=== PATIENT | male | born 1995 | race Caucasian/White ===

== ENCOUNTER → 2017-09-09 | Outpatient (CLI) | payer OTHER ==
[~2017-09-09] MED LIST: CETI10CA PO; GADAVIST IV PRN
--- NOTE | 2017-09-09 21:06 | DIAGNOSTIC IMAGING REPORT ---
MRI OF THE BRAIN WITHOUT AND WITH IV CONTRAST CLINICAL HISTORY: Abnormalities of the gait and mobility. Fatigue. Dizziness. COMPARISON STUDY: Head CT July 19, 2016. TECHNIQUE: Utilizing a 1.5 Farhana magnet and dedicated coil, multiplanar, multiecho imaging of the brain was performed pre and postcontrast administration. IV administration of 10.5 mL of Gadavist contrast was uneventful. FINDINGS: There are no foci of restricted diffusion. No acute intracranial hemorrhage, midline shift or mass effect is present. Brain volume is normal. Ventricular system is normal. Basilar cisterns are patent. There are no extra-axial collections. Flow-voids for the major intracranial vessels are present. There is no intracranial mass or pathologic enhancement. No areas of signal abnormality are present. Orbits are unremarkable. Mastoid air cells are clear. Calvarial signal is normal. There is no evidence for a Chiari I malformation. IMPRESSION: Normal MRI of the brain. Electronically signed by: Myke Guillaume M.D. 09/09/2017 9:04 PM Dictated Date/Time: 09/09/2017 9:00 PM
== END | disposition home or self-care (01) ==
LOC: C.MRI 18:46
PROVIDERS: ATTEND Psychiatry & Neurology Neurology
DX: R26.9 Unspecified abnormalities of gait and mobility (principal)

== ENCOUNTER → 2018-01-27 | Outpatient (CLI) | payer OTHER ==
[~2018-01-27] MED LIST changes: -GADAVIST IV PRN
--- NOTE | 2018-01-27 11:01 | DIAGNOSTIC IMAGING REPORT ---
RENAL ULTRASOUND HISTORY: CHRONIC PROSTATITIS COMPARISON: None. FINDINGS: Right kidney: 13.7 cm. No hydronephrosis. Normal corticomedullary differentiation and cortical thickness. Left kidney: 12.6 cm. The lower pole is partially obscured by overlying bowel gas. No hydronephrosis. Normal corticomedullary differentiation and cortical thickness. Bladder: No bladder wall thickening. The bilateral ureteral jets were identified. The spleen measures 13.2 cm in length. However, this is likely within the range normal limits given the patient's height. IMPRESSION: No significant abnormality within the kidneys or bladder. Electronically signed by: Larry Yarbrough M.D. 01/27/2018 11:00 AM Dictated Date/Time: 01/27/2018 10:58 AM
== END | disposition home or self-care (01) ==
LOC: C.ULTR 10:04
PROVIDERS: ATTEND Urology
DX: N41.1 Chronic prostatitis (principal)